=== PATIENT | female | born 1995 | race Caucasian/White ===

== ENCOUNTER 2016-06-24 13:15 | Emergency (ER) | payer MEDICAID ==
[2016-06-24 13:33] VITALS: BP 120/62
== END 2016-06-24 14:01 | disposition left against medical advice (07) ==
LOC: ED 13:15
DX: Z53.21 Procedure and treatment not carried out due to patient leaving prior to being seen by health care provider (principal)

== ENCOUNTER 2016-12-29 18:18 | Emergency (ER) | payer MEDICAID ==
[~2016-12-29] VITALS: Ht 170.2 cm; Wt 76.7 kg
[2016-12-29 21:27] VITALS: BP 116/69
== END 2016-12-29 21:27 | disposition home or self-care (01) ==
LOC: ED 18:18
DX: J02.9 Acute pharyngitis, unspecified (principal)

== ENCOUNTER 2017-06-25 18:32 | Emergency (ER) | payer MEDICAID ==
[~2017-06-25] VITALS: Ht 170.2 cm; Wt 81.8 kg
[2017-06-25 18:36] VITALS: Ht 170.2 cm; Wt 81.8 kg
[2017-06-25 20:25] VITALS: BP 117/59
== END 2017-06-25 20:25 | disposition home or self-care (01) ==
LOC: ED 18:32
DX: M54.5 Low back pain (principal); R53.1 Weakness; K21.9 Gastro-esophageal reflux disease without esophagitis; G43.909 Migraine, unspecified, not intractable, without status migrainosus
CPT/HCPCS: 82962; J1885

== ENCOUNTER 2018-07-17 01:10 | Emergency (ER) | payer MEDICAID ==
[~2018-07-17] VITALS: Ht 170.2 cm; Wt 80.3 kg
[2018-07-17 01:18] VITALS: Ht 170.2 cm; Wt 80.3 kg
[2018-07-17 02:13] LABS: microscopic required? YES; urine erythrocyte TRACE (NEGATIVE)
[2018-07-17 05:23] VITALS: BP 113/74
== END 2018-07-17 05:23 | disposition home or self-care (01) ==
LOC: ED 01:10
PROVIDERS: Emergency Medicine
DX: O20.0 Threatened abortion (principal); O23.42 Unspecified infection of urinary tract in pregnancy, second trimester; K21.9 Gastro-esophageal reflux disease without esophagitis; Z3A.14 14 weeks gestation of pregnancy
CPT/HCPCS: Q0092

== ENCOUNTER 2019-03-28 21:23 | Emergency (ER) | payer MEDICAID ==
[~2019-03-28] VITALS: Ht 170.2 cm; Wt 78.5 kg
[2019-03-28 21:37] VITALS: Ht 170.2 cm; Wt 78.5 kg
[2019-03-28 22:22] LABS: BASOPHIL % 0.4 % (0-2); PLATELET COUNT 195 x10^3mcL (130-400)
[2019-03-28 22:55] LABS: CALCIUM 8.5 mg/dL (8.5-10.1); CHLORIDE SERUM 104 mmol/L (98-107); CREATININE SERUM 0.8 mg/dL (0.6-1.0); GFR1 > 60 mL/min; GLUCOSE SERUM 100 mg/dL (74-106); POTASSIUM SERUM 3.8 mmol/L (3.5-5.1); SODIUM SERUM 142 mmol/L (136-145)
[2019-03-28 22:59] LABS: ALBUMIN 3.7 g/dL (3.4-5.0); ALKALINE PHOSPHATASE 126 U/L (46-116); ALT/SGPT 96 U/L (14-59); AST/SGOT 164 U/L (15-37); BILIRUBIN TOTAL 0.5 mg/dL (0.20-1.00); TOTAL PROTEIN, SERUM 7.8 g/dL (6.4-8.2)
[2019-03-29 00:57] VITALS: BP 119/65
== END 2019-03-29 03:48 | disposition home or self-care (01) ==
LOC: ED 21:23
PROVIDERS: Emergency Medicine
DX: M54.6 Pain in thoracic spine (principal); R07.89 Other chest pain; R11.2 Nausea with vomiting, unspecified; G43.909 Migraine, unspecified, not intractable, without status migrainosus; K21.9 Gastro-esophageal reflux disease without esophagitis; Z86.2 Personal history of diseases of the blood and blood-forming organs and certain disorders involving the immune mechanism
CPT/HCPCS: 36415; 83880; 85378; J1885

== ENCOUNTER 2019-10-26 17:41 | Emergency (ER) | payer SELFPAY ==
[~2019-10-26] VITALS: Ht 170.2 cm; Wt 77.6 kg
[2019-10-26 18:11] VITALS: Ht 170.2 cm; Wt 77.6 kg
[2019-10-26 19:11] VITALS: BP 104/65
== END 2019-10-26 19:11 | disposition home or self-care (01) ==
LOC: ED 17:41
DX: N39.0 Urinary tract infection, site not specified (principal); G43.909 Migraine, unspecified, not intractable, without status migrainosus; K21.9 Gastro-esophageal reflux disease without esophagitis
CPT/HCPCS: J1885

== ENCOUNTER 2019-10-31 14:06 | Emergency (ER) | payer MEDICAID ==
[~2019-10-31] VITALS: Ht 170.2 cm; Wt 77.6 kg
[2019-10-31 14:38] VITALS: Ht 170.2 cm; Wt 77.6 kg
[2019-10-31 16:25] VITALS: BP 111/61
== END 2019-10-31 16:25 | disposition home or self-care (01) ==
LOC: ED 14:06
DX: M54.41 Lumbago with sciatica, right side (principal); G43.909 Migraine, unspecified, not intractable, without status migrainosus; K21.9 Gastro-esophageal reflux disease without esophagitis
CPT/HCPCS: J1885